=== PATIENT | female | born 1970 | race African-American/Black ===

== ENCOUNTER 2017-05-14 10:11 | Emergency (ER) | payer BC ==
[~2017-05-14 10:11] MED LIST: CLARITIN-D 121 EAC1 PO; IBUPROFEN 800800 M1 PO; TESSALON PERLE100 MG PO
[2017-05-14] MEDS ORDERED: TESSALON PERLE100 MG PO (10:37)
[2017-05-14] MEDS ORDERED: PROVENTIL HFA6.7 G1 INH (10:37)
== END 2017-05-14 12:44 | disposition home or self-care (01) ==
LOC: ER 10:11
DX: J06.9 Acute upper respiratory infection, unspecified (principal)

== ENCOUNTER 2019-02-14 18:28 | Emergency (ER) | payer OTHER ==
[~2019-02-14] VITALS: Ht 162.6 cm; Wt 117.9 kg
[~2019-02-14 18:28] MED LIST changes: +PROVENTIL HFA6.7 G1 INH
[2019-02-14] MEDS ORDERED: NOHOMEMEDICATIONS (19:16)
[2019-02-14] MEDS ORDERED: TESSALON PERLE100 MG PO (20:22)
[2019-02-14] MEDS ORDERED: AMOXICILLIN500 M1 PO (20:24)
[2019-02-14 20:31] VITALS: BP 124/81
== END 2019-02-14 20:35 | disposition home or self-care (01) ==
LOC: ER 18:28
DX: J06.9 Acute upper respiratory infection, unspecified (principal); H66.91 Otitis media, unspecified, right ear; E11.9 Type 2 diabetes mellitus without complications